=== PATIENT | female | born 2000 | race Caucasian/White ===

== ENCOUNTER 2021-10-28 19:26 | Inpatient (IN) | payer OTHER, SELFPAY ==
[2021-10-28] VITALS (52 sets, daily range): BP systolic 67–154; BP diastolic 47–108; PULSE 81–133; TEMP 37.7; O2SAT 95–100; BMI 34.1
--- OUTSIDE RECORDS SUMMARY | 2021-10-28 19:58 | XMS_ITS | Encounter Summary ---
:2000 Author Reason for Visit OB visit Assessment and Plan Assessment Note Patient is ___weeks . Discu ssed plan. 1. Routine care Discussion Note: None recorded.Patient educational handouts: No information available. Plan of Care Reminders Provider Appointments Ob Routine Irene Lal CNM 11/02/2021 1:15PM ? Induction Gavi The rese 11/02/2021 MD Jonny 12:01AM ? Ob Routine Esther Lal CNM 11/09/2021 1:30PM Lab None ? ? recorded. Referral None ? ? recorded. Procedures None ? ? recorded. Surgeries None ? ? recorded. Imaging None ? ? recorded. Medications Name Start Date ? ? ? Medications Administered None recorded. Vitals Height Weight BMI Blood Pressure 5 ft 1.5 in 181 lbs 33.6 kg/m2 130/85 mm[Hg] Results Lab Results None recorded. Allergies Code Code System Name Reaction Severity Onset NKDA ? ? ? Problems
--- OUTSIDE RECORDS SUMMARY | 2021-10-28 19:58 | XMS_ITS | Encounter Summary ---
:2000 Author Reason for Visit OB visit Assessment and Plan Assessment Note Patient is ___weeks . Discu ssed plan. 1. Uterine size for dates discre pancy Discussion Note: None recorded.Patient educational handouts: No [...] BMI Blood Pressure 5 ft 1.5 in 173 lbs 32.2 kg/m2 124/81 mm[Hg] Results Lab Results None recorded. Allergies Code Code System Name Reaction Severity Onset NKDA ? ? ?
--- OUTSIDE RECORDS SUMMARY | 2021-10-28 19:58 | XMS_ITS ---
:2000 Author Care Team Providers Name Role Phone Aquiles Patel Primary Care Provider Unavailable Allergies Code Code System Name Reaction Severity Status Onset NKDA ? Medications Name Status Start Date Stop Date ? ? Depo-Provera 150 mg/mL intramuscular suspension Completed 10/07/2015 03/30/2021 inject 1 milliliter by intramuscular route every 3 months Depo-Provera 150 mg/mL intramuscular syringe Completed 03/30/2021 inject 1 milliliter by intramuscular route every 3 months doxycycline hyclate 100 mg Completed ? 03/30 tablet ibuprofen 100 mg tablet Completed 03/30/2015 03/30/20 take 2 tablet by oral route every 4 - 6 hours as needed with f ood Junel FE 11/23 (28) 1 mg-20 mcg (21)/75 mg (7) tablet Completed 03/30/2015 03/30/2021 take 1 tablet by oral route every day metronidazole 0.75 % vaginal Completed ? gel metronidazole 500 mg tablet Completed ? 09/04 Nexplanon 68 mg subdermal implant Completed 01/29/2019 03/30/2021 Insert penicillin V potassium 500 mg Completed ? tablet Active ? Not available Problems Name Status Onset Date Source ? Well Child Unknown 03/30/2015 History Specialized Medical Examination Unknown 03/30/2015 History Education Unknown 07/04/2015 History Family Planning Surveillance Unknown 07/20/2015 His tory Test Negative Unknown 07/20/2015 History
--- OUTSIDE RECORDS SUMMARY | 2021-10-28 19:58 | XMS_ITS | Encounter Summary ---
:2000 Author Reason for Visit OB visit pt is here today for routine ob visit 35 .4 wks Assessment and Plan 1. Routine care Discussion Note: None recorded.Patient [...] BMI Blood Pressure 5 ft 1.5 in 179 lbs 33.3 kg/m2 128/80 mm[Hg] Results Lab Results None recorded. Allergies Code Code System Name Reaction Severity Onset NKDA ? ? ? Problems Name Status Onset Date Source ?
--- OUTSIDE RECORDS SUMMARY | 2021-10-28 19:58 | XMS_ITS | Encounter Summary ---
:2000 Author Reason for Visit OB visit OB and HASMUKH - trich Assessment and Plan Assessment Note Patient is [...] BMI Blood Pressure 5 ft 1.5 in 170 lbs 31.6 kg/m2 132/75 mm[Hg] Results Lab Results None recorded. Allergies Code Code System Name Reaction Severity Onset NKDA
--- OUTSIDE RECORDS SUMMARY | 2021-10-28 19:58 | XMS_ITS | Encounter Summary ---
:2000 Author Reason for Visit OB visit 38wks Assessment and Plan 1. Routine care Discussion [...] ft 1.5 in 181 lbs 33.6 kg/m2 135/85 mm[Hg] Results Lab Results None recorded. Allergies Code Code System Name Reaction Severity Onset NKDA ? ? ? Problems Name Status Onset Date Source ?
--- OUTSIDE RECORDS SUMMARY | 2021-10-28 19:58 | XMS_ITS | Encounter Summary ---
:2000 Author Reason for Visit None recorded. Assessment and Plan 1. Gravid uterus [id number] ? US, obstetric, follow-up Discussion Note: None recorded.Patient educational handouts: No information available. Plan of Care Reminders Provider Appointments Ob Routine Irene Lal CNM 11/02/2021 1:15PM ? Induction Gavi The rese 11/02/2021 MD Jonny 12:01AM ? Ob Routine Esther Lal CNM 11/09/2021 1:30PM Lab None ? ? recorded. Referral None ? ? recorded. Procedures None ? ? recorded. Surgeries None ? ? recorded. Imaging , [facility], Follow-up 09/07/2021 Medications Name Start Date ? ? ? Medications Administered None recorded. Vitals None recorded. Results Lab Results None recorded. Allergies Code Code System Name Reaction Severity Onset NKDA ? ? ? Problems Name Status Onset Date Source ?
--- OUTSIDE RECORDS SUMMARY | 2021-10-28 19:58 | XMS_ITS | Encounter Summary ---
:2000 Author Reason for Visit OB visit Assessment and Plan Assessment Note Patient is ___weeks . Discu ssed plan. 1. Infection by Trichomonas ? metronidazole 500 mg table t Discussion Note: None recorded.Patient educational handouts: No [...] BMI Blood Pressure 5 ft 1.5 in 177 lbs 32.9 kg/m2 133/83 mm[Hg] Results Lab Results None recorded. Allergies Code Code System Name Reaction Severity Onset
[2021-10-28] MEDS: AMPICILLIN 2 GM/NS 100 ML 2 GM/100 ML BAG IVPB (20:19)
[2021-10-28] MEDS: LACTATED RINGERS 1,000 ML 125 ML IV CONT ×2 (20:19→23:52)
[2021-10-28 20:26] LABS: Basophils Percent Auto 0.1 % (0.2-1.2); Eosinophils Percent Auto 0.1 % (0-4.4); Hematocrit 35.3 % (37.0-47.0); Hemoglobin 11.6 g/dL (12.0-15.0); Immature Granulocyte Absolute 0.16 K/mm3 (0.00-0.031); Immature Granulocyte Percent A 0.6 % (0-0.5); Lymphocytes Absolute Auto 2.07 K/mm3 (0.9-3.2); Lymphocytes Percent Auto 7.6 % (18.3-44.2); Mean Corpuscular HGB Conc 32.9 g/dl (32-36); Mean Corpuscular Volume 82.1 fl (80-100); Mean Platelet Volume 10.9 fl (7.4-10.4); Monocytes Absolute Auto 1.4 K/mm3 (0.1-0.6); Monocytes Percent Auto 5.2 % (2.6-8.5); Neutrophils Absolute Auto 23.5 K/mm3 (1.3-6.7); Neutrophils Percent Auto 86.4 % (45.5-73.1); Platelet Count Result 361 k/mm3 (150-375); Red Cell Distribution Width 13.8 % (11.5-14.5); White Blood Count 27.2 K/mm3 (4.5-10.0)
--- NOTE | 2021-10-28 21:05 | LDADM ---
This patient, Anika Moser, was admitted to Labor/Delivery/Recovery 106 on 10/28/21 at 19:26. Plans for labor, pain management and were discussed with patient. Patient/family oriented to hospital policies and general routines including ID bracelet, bed and alarms, visiting hours, pain management, procedures, bathroom and other care routines, personal items, smoking policy, room service/diet and guest tray routines, security routines, and visiting hours. Patient/Family are encouraged to report perceived risks to care and to ask questions if they do not understand what they are told or what they should do. See OBIX for further documentation.
[2021-10-28 21:10] LABS: Amphetamine Screen Urine Negative (Negative); Barbiturate Screen Urine Negative (Negative); Benzodiazepines Screen Urine Negative (Negative); Cannabinoid Screen Urine Positive (Negative); Cocaine Screen Urine Negative (Negative); Methadone Screen Urine Negative (Negative); Opiate Screen Urine Negative (Negative); Phencyclidine Screen Urine Negative (Negative)
[2021-10-28] MEDS: ACETAMINOPHEN 500 MG TABLET 1000 MG PO (21:38)
[2021-10-28] MEDS: fentaNYL CITRATE INJ (*CRX) 100 MCG/2 ML VIAL 50 MCG IV PUSH (21:57)
[2021-10-28 22:05] LABS: EDCOVIDSCREEN Negative (Negative)
[2021-10-29] VITALS (142 sets, daily range): BP systolic 66–161; BP diastolic 24–125; PULSE 79–243; RESP 16–20; TEMP 36.6–37.1; O2SAT 95–100
[2021-10-29] MEDS: AMPICILLIN 1 GM/NS 50 ML 1 GM/50 ML BAG IVPB ×2 (00:35→04:29)
[2021-10-29] MEDS: ONDANSETRON INJ 4 MG/2 ML VIAL IV PUSH ×2 (03:42→14:09)
[2021-10-29] MEDS: LACTATED RINGERS 1,000 ML 125 ML IV CONT (03:42)
[2021-10-29] MEDS: TERBUTALINE SULFATE 1 MG/ML VIAL 0.25 MG SUB-Q (04:31)
--- NOTE | 2021-10-29 05:42 | PM.IMHP ---
H&P: HPI History of Present Illness Date/Time: 10/29/21 05:42 Chief Complaint: SROM Narrative: Anika is a 21yo G1 at 38+ weeks who presented last night with SROM, GBS pos. Has been receiving Ampicillin, no pitocin, labored on her own. Baseline started 155/160 on admission and has been creeping up, now 175. Afebrile, COVID neg, no URI sx. Had periods of late decelerations, none currently, but minimal variability, so decision has been made to proceed with CS. has been uncomplicated to this point. Review of Systems Review of Systems: All systems reviewed & are unremarkable except as noted in HPI and below [facility] Family History Family History (Updated 10/25/21 @ 12:45 by Van Rodriguez RN) Father Emphysema lung Mother Chronic obstructive pulmonary disease Social History Social History Smoking status: Never smoker Second hand tobacco smoke exposure: No Substance use: current Last use: 10/24/21 Spiritual care concerns: No Meds Home Medications and Allergies Allergies Allergy/AdvReac Type Severity Reaction Status Date / Time No Known Allergies Allergy Verified 10/28/21 21:11 Vital Signs Vital Signs - 24 hr 10/28/21 19:41 10/28/21 19:46 10/28/21 19:48 Temperature Pulse Rate 116 H 112 H 118 H Blood Pressure 133/82 67/51 L 145/83 H Pulse Oximetry 10/28/21 20:00 10/28/21 20:46 10/28/21 21:00 Temperature Pulse Rate 112 H 108 H 104 H Blood Pressure 147/89 H 90/55 L 113/69 Pulse Oximetry 10/28/21 21:15 10/28/21 21:30 10/28/21 21:38 Temperature 99.9 F H Pulse Rate 108 H 98 Blood Pressure 118/63 129/78 Pulse Oximetry 10/28/21 21:46 10/28/21 22:02 10/28/21 22:13 Temperature Pulse Rate 119 H 130 H Blood Pressure 110/62 119/52 L Pulse Oximetry 98 10/28/21 22:17 10/28/21 22:18 10/28/21 22:23 Temperature Pulse Rate 81 Blood Pressure 135/69 Pulse Oximetry 96 100 10/28/21 22:28 10/28/21 22:32 10/28/21 22:33 Temperature Pulse Rate 114 H Blood Pressure 142/108 H Pulse Oximetry 95 100 10/28/21 22:35 10/28/21 22:36 10/28/21 22:37 Temperature Pulse Rate 117 H 118 H Blood Pressure 146/79 H 144/78 H Pulse Oximetry 100 10/28/21 22:38 10/28/21 22:41 10/28/21 22:42 Temperature Pulse Rate 120 H 110 H Blood Pressure 154/71 H 139/58 L Pulse Oximetry 100 10/28/21 22:43 10/28/21 22:45 10/28/21 22:46 Temperature Pulse Rate 105 H 105 H Blood Pressure 145/74 H 137/70 Pulse Oximetry 100 10/28/21 22:48 10/28/21 22:50 10/28/21 22:53 Temperature Pulse Rate 109 H 95 86 Blood Pressure 133/59 L 143/69 H 129/77 Pulse Oximetry 100 10/28/21 22:55 10/28/21 22:56 10/28/21 22:58 Temperature Pulse Rate 112 H 93 Blood Pressure 127/66 134/67 Pulse Oximetry 100 10/28/21 23:00 10/28/21 23:03 10/28/21 23:05 Temperature Pulse Rate 99 96 92 Blood Pressure 121/66 124/63 119/65 Pulse Oximetry 100 100 10/28/21 23:08 10/28/21 23:10 10/28/21 23:14 Temperature Pulse Rate 91 103 H 93 Blood Pressure 126/65 118/67 114/49 L Pulse Oximetry 100 10/28/21 23:15 10/28/21 23:18 10/28/21 23:20 Temperature Pulse Rate 99 102 H 109 H Blood Pressure 109/55 L 104/53 L 124/58 L Pulse Oximetry 100 99 10/28/21 23:23 10/28/21 23:25 10/28/21 23:28 Temperature Pulse Rate 110 H 102 H 108 H Blood Pressure 104/54 L 113/53 L 94/47 L Pulse Oximetry 100 10/28/21 23:30 10/28/21 23:35 10/28/21 23:40 Temperature Pulse Rate 106 H Blood Pressure 103/49 L Pulse Oximetry 99 100 99 10/28/21 23:45 10/28/21 23:46 10/28/21 23:50 Temperature Pulse Rate 121 H Blood Pressure 107/60 Pulse Oximetry 100 100 10/28/21 23:55 10/29/21 00:00 10/29/21 00:05 Temperature Pulse Rate 97 Blood Pressure 109/66 Pulse Oximetry 100 100 99 10/29/21 00:10 10/29/21 00:15 10/29/21 00:20 Temperature Pulse Rate 102 H Blood Pressure 108/50 L Pulse Oximet
--- NOTE | 2021-10-29 05:46 | WPDHPUPDATE1 ---
History and Physical Update Update Date/Time: 10/29/21 05:46 History and Physical has been reviewed, including an updated exam of the patient. There are NO changes in the patient's condition. Risks, benefits, and alternatives have been discussed and questions answered. Patient agrees to proceed with procedure.
--- NOTE | 2021-10-29 06:30 | P.PCNOB_ITS ---
OB - Delivery Note Procedure Delivery date: 10/29/21 Procedure: Procedures Operation Date: 10/29/21 05:30 <No data on this case meets the specified criteria> Primary Low Transverse Section events: Premature Rupture of Membrane Intrapartal events: Intolerance Delivery monitor: external FHT and external uterine Route of delivery: Specimen: Yes (placenta) Quantitative Blood Loss (ml): 950 Anesthesia type: Epidural Disposition: floor Complications: none Narrative: The patient was taken to the OR and had her epidural anesthesia dosed adequately. She was placed in dorsal supine position with left lateral tilt. SCDs and brandt had been placed. She was prepped and draped in the normal sterile fashion. A Pfannensteil skin incision was made and carried through to the underlying layer of fascia. The fascia was incised in the midline and then extended laterally using Pollard scissors. The muscles were in the midline and the peritoneum was entered bluntly. The peritoneal incision was extended inferiorly and superiorly with care to avoid the bladder. The bladder blade was then inserted, the vesicouterine peritoneum was grasped, incised with Metzenbaum scissors, and a bladder flap created. The bladder blade was reinserted. A low transverse uterine incision was made with a scalpel and extended bluntly. The head was delivered, followed by the remainder of the baby. The baby's oropharynx was suctioned. After 30 seconds, the cord was clamped and cut and the was handed off. Cord blood was obtained and the placenta was then removed manually. The uterus was exteriorized. A moist lap sponge was used to curette the endometrium. The uterine incision was then closed with one layer of 0-Vicryl in a running, locking fashion. One additional figure of eight suture was required. Good hemostasis was noted. The posterior cul de sac was irrigated with normal saline and cleared of all clot and debris. The uterus was returned to the abdomen. Both lateral gutters were then irrigated. The rectus muscles were inspected and found to be hemostatic. The fascia was reapproximated using 0- Vicryl in running fashion. The subcutaneous tissue was irrigated with normal saline and made hemostatic with Bovie electrocautery. The skin was then closed with absorbable beka. Steri strips and a bandage were applied. The uterus was evacuated. The patient tolerated the procedure very well. All counts were correct. She was taken to the recovery room in good condition. Baby Date of : 10/29/21 Time of : 06:01 Weeks of gestation at delivery: 38 Infant gender: Female Weight (pounds): 6 Weight (ounces): 9 presentation: vertex Placenta delivery description: Manual Removal cord vessel description: 3 Vessels score one minute: 9 score five minutes: 9
--- NOTE | 2021-10-29 08:38 | OBPPTRN ---
Patient transferred to post room #288 via stretcher. Support person present. Oriented to unit, room, information board, rooming in, admission packet and security measures. Patient verbalizes understanding.
[2021-10-29] MEDS: OXYTOCIN 30 UNITS/NS 500 ML 30 UNITS/500 ML BAG 125 UNITS IV CONT (08:48)
[2021-10-29] MEDS: KETOROLAC 30 MG/ML VIAL (*BKC) IV PUSH (12:00)
[2021-10-29] MEDS: DEXTROSE 5%/0.45% SOD CHL 1,000 ML 125 ML IV CONT (13:07)
--- NOTE | 2021-10-29 14:45 | PC.NURSE ---
Pt states she is feeling better since I gave her the Zofran, she is no longer hot and sweaty .
[2021-10-29] MEDS: HYDROcodone/acetaminophen (*CRX) 10-325 MG TABLET 1 TAB PO (18:29)
[2021-10-29] MEDS: SIMETHICONE 80 MG TAB.CHEW PO (18:29)
[2021-10-29] MEDS: DOCUSATE SODIUM 100 MG CAPSULE PO (18:29)
[2021-10-29] MEDS: IBUPROFEN 600 MG TABLET PO (18:29)
[2021-10-29] MEDS: ZOLPIDEM TARTRATE (*CRX) 5 MG TABLET PO (19:58)
[2021-10-30] VITALS: BP 111/72; PULSE 86; RESP 18; TEMP 37
[2021-10-30] MEDS: SIMETHICONE 80 MG TAB.CHEW PO ×4 (00:17→21:55)
[2021-10-30] MEDS: IBUPROFEN 600 MG TABLET PO ×4 (00:17→21:55)
[2021-10-30] MEDS: HYDROcodone/acetaminophen (*CRX) 10-325 MG TABLET 1 TAB PO ×5 (00:17→21:55)
[2021-10-30] MEDS: TETANUS,DIPHTHERIA,AC PERTUSSIS ADULT (0.5 ML) BOOSTRIX IM (00:18)
[2021-10-30 04:35] VITALS: BP 100/58; PULSE 91; RESP 18; TEMP 36.8
[2021-10-30 04:49] LABS: Basophils Absolute Auto 0.1 K/mm3 (0.0-0.1); Basophils Percent Auto 0.5 % (0.2-1.2); Eosinophils Absolute Auto 0.1 K/mm3 (0-0.3); Eosinophils Percent Auto 0.6 % (0-4.4); Hematocrit 25.1 % (37.0-47.0); Hemoglobin 8.1 g/dL (12.0-15.0); Immature Granulocyte Absolute 0.15 K/mm3 (0.00-0.031); Immature Granulocyte Percent A 0.7 % (0-0.5); Mean Corpuscular HGB Conc 32.3 g/dl (32-36); Mean Corpuscular Hemoglobin 27.3 pg (26-34); Mean Corpuscular Volume 84.5 fl (80-100); Mean Platelet Volume 11.2 fl (7.4-10.4); Monocytes Percent Auto 4.6 % (2.6-8.5); Neutrophils Absolute Auto 16.8 K/mm3 (1.3-6.7); Neutrophils Percent Auto 78.6 % (45.5-73.1); Platelet Count Result 300 k/mm3 (150-375); Red Blood Count 2.97 M/mm3 (4.2-5.4); Red Cell Distribution Width 14.4 % (11.5-14.5); White Blood Count 21.3 K/mm3 (4.5-10.0)
[2021-10-30 08:00] VITALS: BP 107/71; PULSE 90; RESP 16; TEMP 36.4; O2SAT 99
--- NOTE | 2021-10-30 08:46 | P.PNOB_ITS ---
OB - PN: Subj Subjective Date/time seen: 10/30/21 08:46 Patient comments: no complaints and pain well controlled baby status: doing well Narrative: POD 1 from primary CS. Doing well. Normal lochia. Eating, ambulating, brandt out. OB - PN: Obj Data Labs CBC & Chem 7: 10/30/21 04:11 Labs: Laboratory Results - last 24 hr 10/30/21 04:11 WBC 21.3 H RBC 2.97 L Hgb 8.1 L D Hct 25.1 L MCV 84.5 MCH 27.3 MCHC 32.3 RDW 14.4 Plt Count 300 MPV 11.2 H Immature Gran % (Auto) 0.7 H Neut % (Auto) 78.6 H Lymph % (Auto) 15.0 L [place] % (Auto) 4.6 Eos % (Auto) 0.6 Baso % (Auto) 0.5 Lymph # (Auto) 3.20 [place] # (Auto) 1.0 H Eos # (Auto) 0.1 Baso # (Auto) 0.1 Abs Immat Gran (auto) 0.15 H Absolute Neuts (auto) 16.8 H Absolute Nucleated RBC 0.0 Nucleated RBC % 0.0 OB - PN A/P Assessment and Plan (1) delivery delivered: Code(s): O82 - Encounter for delivery without indication Status: Acute Plan day: 1 Plan: routine care Time Spent With Patient Time: Total time spent is greater than 50% in coordination of care (as documented) at patient's floor/unit and/or counseling patient: Exam Narrative: NAD abdomen soft, appropriately tender, incision bandaged Extremities nontender with 1+ edema
[2021-10-30] MEDS: DOCUSATE SODIUM 100 MG CAPSULE PO ×2 (08:53→17:28)
[2021-10-30] MEDS: HYDROcodone/acetaminophen (*CRX) 5-325 MG TABLET 1 TAB PO (08:54)
[2021-10-30] MEDS: POLYSACCHARIDE IRON COMPLEX 150 MG CAPSULE PO ×2 (08:54→17:28)
[2021-10-30 11:21] LABS: Rapid Plasma Reagin Non-Reactive (NonReactive)
--- NOTE | 2021-10-30 14:19 | PCCCNOTE ---
Care Coordination met with pt. and sig other this morning to discuss discharge planning. Pt.'s current D/C plan is to return home with baby. Pt. lives alone and sig other is in process of moving in to assist with baby. Pt. states she has everything need to safely bring baby home. Pt. is current with [facility] and will continue to bottle feed baby at time of D/C. Pt. tested positive for THC, she states drug use prior to hospitalization and states she will continue now that baby has been delivered. CC completed online report for [place] D[facility], ID number [id number]. Will follow.
[2021-10-30 18:40] VITALS: BP 123/79; PULSE 87; RESP 18; TEMP 36.6
[2021-10-30] MEDS: ZOLPIDEM TARTRATE (*CRX) 5 MG TABLET PO (21:55)
[2021-10-31] MEDS: IBUPROFEN 600 MG TABLET PO ×3 (04:55→23:30)
[2021-10-31] MEDS: SIMETHICONE 80 MG TAB.CHEW PO (04:55)
[2021-10-31] MEDS: HYDROcodone/acetaminophen (*CRX) 10-325 MG TABLET 1 TAB PO ×3 (04:55→14:45)
[2021-10-31 06:30] VITALS: BP 115/79; PULSE 84; RESP 16; TEMP 36.6; O2SAT 100
--- NOTE | 2021-10-31 07:20 | PM.OBPNVD ---
OB - PN: Subj Subjective Date/time seen: 10/31/21 07:20 Patient comments: no complaints and pain well controlled baby status: bottle feeding well [place] feeding status: exclusively bottle feeding Narrative: desires DC home today. +flatus. OB - PN: Obj Data Labs CBC & Chem 7: 10/30/21 04:11 Labs: Laboratory Results - last 24 hr 10/28/21 20:15 RPR Non-reactive OB - PN A/P Assessment and Plan (1) delivery delivered: Code(s): O82 - Encounter for delivery without indication Status: Acute (2) Anemia, blood loss: Code(s): D50.0 - Iron deficiency anemia secondary to blood loss (chronic) Status: Acute Plan day: 2 Plan: routine care and discharge home Comments: DC instructions given continue iron at home. Time Spent With Patient Time: Total time spent is greater than 50% in coordination of care (as documented) at patient's floor/unit and/or counseling patient: Exam Narrative: NAD abdomen soft, appropriately tender, incision CDI Extremities nontender with 1+ edema
--- NOTE | 2021-10-31 07:25 | PM.OBDSVD ---
DS: Admitting Diagnosis Discharge Date 10/01/21 Admitting Diagnosis term IUP, SROM DS: Discharge Diagnosis Discharge Diagnosis (1) Anemia, blood loss: Code(s): D50.0 - Iron deficiency anemia secondary to blood loss (chronic) Status: Acute (2) delivery delivered: Code(s): O82 - Encounter for delivery without indication Status: Acute OB - DS: Summary Hospital Course Hospital Course: Anika was admitted with SROM and labored. However, she required a CS for intolerance of labor. her course was uncomplicated and she was discharged home on POD2. OB Procedures : Ultrasound OB Procedures Intrapartum: OB Procedures: : None Peripartum Data Delivery Method: Section Procedures: Procedures Operation Date: 10/29/21 05:30 Actual Procedure Side Surgeon p Section Gavi Fuller MD complications: none Status at Discharge Functional status at discharge: independent ambulation Time Spent with Patient Time attestation: Total time spent providing and/or coordinating discharge services: Exam Narrative: NAD abdomen soft, appropriately tender, incision CDI DS: Data Data Completed and Pending Pending studies at discharge: Pending at discharge 10/29/21 06:27 Surgical [PTH] Routine Labs on day of discharge: Labs from last 24 hours 10/28/21 20:15 RPR Non-reactive Discharge Plan Discharge Attending physician on discharge: Gavi Fuller Discharging Clinician: Gavi Fuller Anticipated Discharge Date/Time: 10/31/21 16:00 Patient Disposition: Home, Self-Care Activity: may shower, no straining, may drive after 2 weeks and pelvic rest Diet: as tolerated Patient Instructions: Antibiotic Form Stand Alone Forms: General Discharge Information Follow-up/Referrals: Gavi Fuller MD [Physician] - 1 Week Discharge Medications: New hydrocodone-acetaminophen 5-325 mg Tablet 1 tablet PO Q4-5H PRN (Reason: Moderate Pain (4-6)) Qty: 40 RF: 0 docusate sodium 100 mg Capsule 100 mg PO BID PRN (Reason: Constipation) Qty: 60 RF: 0 ibuprofen 600 mg Tablet 600 mg PO Q6H PRN (Reason: Cramping) Qty: 60 RF: 0 polysaccharide iron complex 150 mg iron Capsule 150 mg PO DAILY Qty: 30 RF: 1 Date of admission: 10/28/21 19:26 Primary Care Provider: PHYSICIAN,STORE SALES MANAGER Admitting Provider: Gavi Fuller Attending physician on admission: Gavi Fuller Condition: Stable
--- NOTE | 2021-10-31 10:04 | WPDANLDNPN2 ---
Anes-Prog Note L&D-Neuraxial Date/Time: 10/30/21 10:04 Neuraxial medications: epidural PF morphine Opiod-related complaints: none Patient feedback: Patient satisfied with post-operative pain management.
--- NOTE | 2021-10-31 10:05 | WPDANLDPN2 ---
Anes-Prog Note L&D Date/Time: 10/31/21 10:05 Comfortable throughout: labor and section Neuraxial method: epidural Epidural/Spinal procedure site: clean & non-tender Neuro status: Neuro function grossly intact. Cardiovascular status: normal Respiratory status: normal Airway patency: baseline Mental status: baseline Post-Op hydration status: normal Vital Signs: Last Vital Signs Temp 97.9 F 10/31/21 06:30 Pulse 84 10/31/21 06:30 Resp 16 10/31/21 06:30 BP 115/79 10/31/21 06:30 Pulse Ox 100 10/31/21 06:30 Pain score (VAS): 0/10 Post-procedural complaints: none Patient feedback: Patient satisfied with anesthetic care.
[2021-10-31] MEDS: DOCUSATE SODIUM 100 MG CAPSULE PO ×2 (10:15→17:31)
[2021-10-31] MEDS: POLYSACCHARIDE IRON COMPLEX 150 MG CAPSULE PO ×2 (10:15→17:31)
--- NOTE | 2021-10-31 12:30 | PC.NURSE ---
mother changed her mind and would like to stay another day instead of getting discharged to home. Dr. Fuller and Dr. Mcallister notified, discharge order cancelled.
[2021-10-31 20:00] VITALS: BP 116/79; PULSE 105; RESP 18; TEMP 36.3; O2SAT 100
[2021-10-31] MEDS: HYDROcodone/acetaminophen (*CRX) 5-325 MG TABLET 1 TAB PO (23:30)
--- NOTE | 2021-11-01 07:32 | PM.OBPNVD ---
OB - PN: Subj Subjective Date/time seen: 11/01/21 07:32 Patient comments: incisional pain and flatus present [place] baby status: doing well OB - PN: Obj Data Labs CBC & Chem 7: 10/30/21 04:11 OB - PN A/P Assessment and Plan (1) delivery delivered: Code(s): O82 - Encounter for delivery without indication Status: Acute (2) Anemia, blood loss: Code(s): D50.0 - Iron deficiency anemia secondary to blood loss (chronic) Status: Acute Plan Plan: routine care and discharge home Time Spent With Patient Time: Total time spent is greater than 50% in coordination of care (as documented) at patient's floor/unit and/or counseling patient: Exam Narrative: NAD abdomen soft, appropriately tender, incision CDI Extremities nontender with 1+ edema
[2021-11-01 08:20] VITALS: BP 116/75; PULSE 139; RESP 16; TEMP 38.6; O2SAT 99
[2021-11-01 08:30] VITALS: PULSE 139; RESP 16; O2SAT 99
[2021-11-01] MEDS: POLYSACCHARIDE IRON COMPLEX 150 MG CAPSULE PO (08:31)
[2021-11-01] MEDS: DOCUSATE SODIUM 100 MG CAPSULE PO (08:31)
[2021-11-01] MEDS: SIMETHICONE 80 MG TAB.CHEW PO (08:31)
[2021-11-01] MEDS: HYDROcodone/acetaminophen (*CRX) 5-325 MG TABLET 1 TAB PO (08:32)
[2021-11-01] MEDS: IBUPROFEN 600 MG TABLET PO (08:32)
--- NOTE | 2021-11-01 10:48 | PC.NURSE ---
Patient viewed the discharge video Mother & Baby Care, The First Two Weeks . Patient was given the opportunity and encouraged to ask questions. Patient verbalized understanding of information shared and has been given the mother/baby guide for home reference.
[2021-11-02 08:30] VITALS: BP 124/75; PULSE 108; RESP 20; TEMP 36.7; O2SAT 100
== END 2021-11-01 11:35 | disposition home or self-care (01) | DRG 540 ==
LOC: ANHLDR 10-29 06:33 → ANHOB2 10-29 09:26
PROVIDERS: Admitting Provider Obstetrics & Gynecology; Visit Provider Obstetrics & Gynecology
PROC: 10D00Z1 Extraction of Products of Conception, Low, Open Approach (ICD-10-PCS; CPT 59514; principal; 2021-10-29 05:30)
DX: O99.824 Streptococcus B carrier state complicating childbirth (principal); O76 Abnormality in fetal heart rate and rhythm complicating labor and delivery; O41.1230 Chorioamnionitis, third trimester, not applicable or unspecified; O99.02 Anemia complicating childbirth; D50.0 Iron deficiency anemia secondary to blood loss (chronic); Z3A.38 38 weeks gestation of pregnancy; Z37.0 Single live birth; Z23 Encounter for immunization; Z20.822 Contact with and (suspected) exposure to COVID-19
CPT/HCPCS: 36415; 80307; 84112; 85025; 86592; 86850; 86900; 86901; 87426; 88307; 90715; A9270; C9803; J0290; J1885; J2175; J2274; J2405; J2590; J2795; J3010; J3105; J7120

== ENCOUNTER 2024-06-25 09:47 | Observation (INO) | payer OTHER, SELFPAY ==
[2024-06-25] VITALS (37 sets, daily range): BP systolic 116–146; BP diastolic 54–114; PULSE 60–89; TEMP 36.6–37.1; O2SAT 98–100; BMI 37.9
--- NOTE | ~2024-06-25 | US_ITS ---
EXAMINATION: US abdomen limited DATE: 06/25/2024 13:39 INDICATION: Right abdominal pain. TECHNIQUE: Multiple grayscale and Doppler ultrasound images of the abdomen were obtained. COMPARISON: None FINDINGS: The gallbladder is normal. The appendix is not identified. IMPRESSION: 1. Appendix not identified. 2. Normal gallbladder. Reviewed, dictated and finalized at location A.
--- NOTE | ~2024-06-25 | US_ITS ---
EXAMINATION: US renal BI DATE: 06/25/2024 13:40 INDICATION: Right abdominal and back pain. TECHNIQUE: Multiple ultrasound grayscale images of the kidneys were obtained. COMPARISON: None. FINDINGS: The right kidney measures 10.7 x 6.2 x 5.8 cm. The left kidney measures 11.0 x 5.7 x 5.5 cm. The kidn eys demonstrate normal parenchymal echogenicity. There is no hydronephrosis. IMPRESSION: 1. Normal kidneys. No hydronephrosis. Reviewed, dictated and finalized at location A.
--- NOTE | ~2024-06-25 | MR_ITS ---
EXAMINATION: MR abdomen wo con DATE: 06/26/2024 10:07 INDICATION: Right abdominal pain. Third trimester of . TECHNIQUE: Magnetic resonance imaging (MRI) of the abdomen was performed without intravenous contrast . COMPARISON: Abdomen ultrasound 06/25/2024 FINDINGS: There is a single intrauterine gestation in vertex presentation. The placenta is posterior. The amnio tic fluid volume is normal. The maternal liver, gallbladder, spleen, pancreas, and adrenal glands are normal. There is mild bilateral hydronephrosis and hydroureter. There are no dilated loops of bowel. There is no ascites. IMPRESSION: 1. Appendix not visualized. 2. Mild bilateral hydronephrosis and hydroureter secondary to the gravid uterus. Reviewed, dictated and finalized at location A. IMPRESSION: 1. Appendix not visualized. 2. Mild bilateral hydronephrosis and hydroureter secondary to the gravid uterus .
--- NOTE | ~2024-06-25 | US_ITS ---
EXAMINATION: US OB limited DATE: 06/25/2024 13:39 INDICATION: Right abdominal pain. Right back pain. TECHNIQUE: Real-time ultrasound of the pelvis was performed. COMPARISON: None. FINDINGS: There is a single fetus in vertex presentation. The placenta is posterior. heart rate is 141 b eats per minute (bpm). The amniotic fluid volume is subjectively normal. The deepest vertical pocket is 3.3 cm. IMPRESSION: 1. Single living fetus in vertex presentation. Reviewed, dictated and finalized at location A.
--- NOTE | 2024-06-25 09:47 | OBADM ---
This patient, Anika Moser, admitted to the OB room Labor/Delivery/Recovery 109 for observation. Patient/family oriented to hospital policies and general routines including ID bracelet, bed and alarms, visiting hours, pain management, procedures, bathroom and other care routines, personal items, smoking policy, room service/diet, and visiting hours. Patient/Family are encouraged to report perceived risks to care and to ask questions if they do not understand what they are told or what they should do.
[2024-06-25 10:37] LABS: Add Urine Microscopic? NO; Appearance Urine Clear (Clear); Bilirubin Urine Negative (Negative); Blood Urine Negative (Negative); Color Urine Yellow (Yellow); Glucose Urine UA Negative (Negative); Ketones Urine Negative (Negative); Leukocyte Esterase Ur Negative LEU/UL (Negative); Nitrate Urine Negative (Negative); Protein Urine Negative (Negative); Specific Grav Ur 1.011 (1.001-1.035); Urobilinogen Urine 0.2 mg/dL (<2.0)
--- NOTE | 2024-06-25 11:40 | PC.NURSE ---
Called Nalini Kerr CNM with pt status. Pt presented with right sided back pain that wrapped around to right side of abdomen. Pt was sweating and moaning in pain. SVE 1/thick/high. UA results given. Orders received.
[2024-06-25] MEDS: CYCLOBENZAPRINE HCL 10 MG TABLET (11:51)
[2024-06-25 14:37] LABS: Hematocrit 37.7 % (37.0-47.0); Hemoglobin 11.9 g/dL (12.0-15.0); Mean Corpuscular HGB Conc 31.6 g/dl (32-36); Mean Corpuscular Hemoglobin 27.4 pg (26-34); Mean Corpuscular Volume 86.7 fl (80-100); Mean Platelet Volume 10.6 fl (7.4-10.4); Platelet Count Result 407 k/mm3 (150-375); Red Blood Count 4.35 M/mm3 (4.2-5.4); Red Cell Distribution Width 14.1 % (11.5-14.5); White Blood Count 28.8 K/mm3 (4.5-10.0)
[2024-06-25 14:49] LABS: Alanine Aminotransferase 18 U/L (6-35); Albumin Level 4.2 g/dL (3.5-5.1); Alkaline Phosphatase 285 U/L (38-126); Anion Gap 12 mmol/L (4-12); Aspartate Amino Transferase 24 U/L (14-36); Bilirubin,Total 0.6 mg/dL (0.2-1.3); Blood Urea Nitrogen 5 mg/dL (7-17); Calcium 8.8 mg/dL (8.4-10.2); Carbon Dioxide 21 mmol/L (22-30); Chloride 101 mmol/L (98-107); Estimated CRCL calculation 149 ml/min; Estimated Glomerular Filt Rate > 60; Glucose 107 mg/dL (65-110); Potassium 4.5 mmol/L (3.4-5.0); Sodium 134 mmol/L (137-145)
[2024-06-25 14:51] LABS: Band Neutrophils Percent 2 % (0-6); Lymphocytes Absolute Manual 1.72 K/mm3 (1.1-4.5); Lymphocytes Percent Manual 6 % (18-44); Neutrophils Absolute Manual 27.07 K/mm3 (1.7-7.2); Neutrophils Percent Manual 92 % (46-73); Platelet Estimate Increased (Adequate); Schistocytes None Seen
[2024-06-25] MEDS: HYDROcodone/acetaminophen (*CRX) 5-325 MG TABLET 1 TAB PO ×2 (16:42→20:51)
[2024-06-25] MEDS: LACTATED RINGERS 1,000 ML 125 ML IV CONT (16:42)
--- NOTE | 2024-06-25 17:48 | PC.NURSE ---
1735- Dr. Garcia in unit. Orders received for abx, pain medication and MD will reevaluate in AM 1746- OBGYN called and updated on POC and consult from Dr. Garcia. OBGYN agrees with plan of care. Orders received for NST qshift.
--- NOTE | 2024-06-25 18:45 | PM.CNGS ---
Assessment and Plan Assessment and plan (1) Lower thoracic back pain: Code(s): M54.6 - Pain in thoracic spine Status: Acute Assessment and Plan: Although white blood cell count is elevated, I do not see other evidence to suggest appendicitis. I will go ahead and start her on IV Zosyn antibiotics and start IV fentanyl 25 mcg q.2 hours p.r.n. for pain. She came in for contractions but is no longer having them. Recheck labs and exam again in the morning. If still uncomfortable with leukocytosis, will discuss either CT scan or MRI with SRINIVAS Wilcox. (2) Left-sided abdominal pain of unknown etiology: Code(s): R10.9 - Unspecified abdominal pain Status: Acute Assessment and Plan: As above (3) Third trimester : Code(s): Z34.93 - Encounter for supervision of normal , unspecified, third trimester Status: Acute Assessment and Plan: 37 weeks reported History of Present Illness Consult details Consult date: 06/25/24 Reason for consult: abdominal pain Requesting physician: Alber Lindsay MD Narrative: Patient is a 23-year-old woman who is 37 weeks gestation of her 2nd . Early this morning she began having right CVA pain. This apparently went on to develop abdominal pain and at some point was right-sided abdominal pain. She had a CBC and was noted to have a very high white blood cell count of 28,800. She was very uncomfortable but has been receiving some fluids and hydrocodone and nursing reports she is much more comfortable now than earlier today. I was asked to see her in consultation regarding the possibility of appendicitis. She did have an ultrasound of the abdomen in which the appendix was not seen. She has not had any fevers or vomiting. The only other CBC in the chart are the 2 results from the 2 days prior to her 1st delivery. these were both quite elevated, in the 20 thousands. She has a predominance of neutrophils on her differential and no increase in bands. She had a section with her 1st . At the present time she still is noticing pain in the right lower thoracic back. She is not really having any pain on the right side of the abdomen. She also is noticing pain in the left mid abdomen. She does admit that she feels better than earlier today. She had a urinalysis which was completely normal. She is seen now in consultation. Review of Systems Review of Systems: All systems reviewed & are unremarkable except as noted in HPI and below (HPI) PMFSH Family History Family History Father Emphysema lung Mother Chronic obstructive pulmonary disease Social History Social History Smoking status: Never smoker Second hand tobacco smoke exposure: No Substance use: current Last use: 06/25 Spiritual care concerns: No Meds Home Medications and Allergies Allergies Allergy/AdvReac Type Severity Reaction Status Date / Time No Known Allergies Allergy Verified 10/28/21 21:11 Vital Signs Vital Signs - 24 hr 06/25/24 10:16 06/25/24 10:31 06/25/24 10:46 Temperature Pulse Rate 71 65 72 Blood Pressure 134/84 128/80 127/76 Oxygen Delivery 06/25/24 11:01 06/25/24 11:15 06/25/24 11:20 Temperature Pulse Rate 80 72 68 Blood Pressure 126/78 135/101 H 131/63 Oxygen Delivery 06/25/24 11:31 06/25/24 11:46 06/25/24 12:01 Temperature Pulse Rate 60 61 72 Blood Pressure 142/72 H 137/114 H 130/69 Oxygen Delivery 06/25/24 12:16 06/25/24 12:31 06/25/24 14:21 Temperature Pulse Rate 67 64 65 Blood Pressure 116/86 139/66 137/59 L Oxygen Delivery 06/25/24 15:01 06/25/24 15:26 06/25/24 16:01 Temperature 36.6 C Pulse Rate 70 80 Blood Pressure 146/68 H 137/54 L Oxygen Delivery 06/25/24 17:01 06/25/24 18:01 06/25/24 11:25 Temperature Pulse Rate 85 89 Blood Pr
[2024-06-25] MEDS: fentaNYL CITRATE INJ (*CRX) 100 MCG/2 ML VIAL 25 MCG IV PUSH ×2 (19:31→22:10)
[2024-06-25] MEDS: PIPERACILLN/TAZ 3.375GM/NS50ML 3.375 GM/50 ML BAG IVPB (19:34)
--- NOTE | 2024-06-25 20:19 | PC.NURSE ---
Called Dr. Patel, orders clarified NST every shift, regular diet per Dr. Garcia's order, and vital signs every hour or two if sleeping.
--- NOTE | 2024-06-25 21:02 | PC.NURSE ---
Addendum entered by Gavi Ahmadi RN 06/25/24 21:03: Time should have been 1530. Forgot to change time when charting. Original Note: Called Nalini Kerr CNM with CBC results and update. Pt states that she got no relief from the Flexeril. Orders received.
[2024-06-25 23:21] LABS: Hemoglobin 11.2 g/dL (12.0-15.0); Mean Corpuscular HGB Conc 32.9 g/dl (32-36); Mean Corpuscular Hemoglobin 27.9 pg (26-34); Mean Corpuscular Volume 84.6 fl (80-100); Mean Platelet Volume 10.8 fl (7.4-10.4); Platelet Count Result 389 k/mm3 (150-375); Red Blood Count 4.02 M/mm3 (4.2-5.4); White Blood Count 24.9 K/mm3 (4.5-10.0)
[2024-06-25 23:58] LABS: Band Neutrophils Percent 2 % (0-6); Lymphocytes Absolute Manual 3.73 K/mm3 (1.1-4.5); Monocytes Absolute Manual 0.74 K/mm3 (0.1-0.90); Monocytes Percent Manual 3 % (3-9); Neutrophils Absolute Manual 20.41 K/mm3 (1.7-7.2); Neutrophils Percent Manual 80 % (46-73); Platelet Estimate Increased (Adequate); Schistocytes None Seen; Total Cells Counted 100
[2024-06-26] VITALS (14 sets, daily range): BP systolic 124–144; BP diastolic 63–77; PULSE 69–108; RESP 16; TEMP 36.4–36.7; O2SAT 97–99
[2024-06-26] MEDS: fentaNYL CITRATE INJ (*CRX) 100 MCG/2 ML VIAL 25 MCG IV PUSH ×3 (00:14→07:05)
[2024-06-26] MEDS: HYDROcodone/acetaminophen (*CRX) 5-325 MG TABLET 1 TAB PO (00:59)
[2024-06-26] MEDS: PIPERACILLN/TAZ 3.375GM/NS50ML 3.375 GM/50 ML BAG IVPB ×2 (01:00→07:00)
[2024-06-26] MEDS: LACTATED RINGERS 1,000 ML 125 ML IV CONT (01:15)
--- NOTE | 2024-06-26 08:38 | PC.NURSE ---
0830- Dr. Garcia at patient bedside. Orders received to draw CBC and MRI. Patient able to eat.
[2024-06-26 09:20] LABS: Basophils Absolute Auto 0.1 K/mm3 (0.0-0.1); Basophils Percent Auto 0.3 % (0.2-1.2); Hematocrit 33.1 % (37.0-47.0); Hemoglobin 10.8 g/dL (12.0-15.0); Immature Granulocyte Absolute 0.43 K/mm3 (0.00-0.031); Lymphocytes Absolute Auto 2.76 K/mm3 (0.9-3.2); Lymphocytes Percent Auto 12.9 % (18.3-44.2); Mean Corpuscular HGB Conc 32.6 g/dl (32-36); Mean Corpuscular Hemoglobin 27.8 pg (26-34); Mean Corpuscular Volume 85.3 fl (80-100); Monocytes Absolute Auto 1.2 K/mm3 (0.1-0.6); Monocytes Percent Auto 5.8 % (2.6-8.5); Neutrophils Absolute Auto 16.9 K/mm3 (1.3-6.7); Platelet Count Result 421 k/mm3 (150-375); Red Blood Count 3.88 M/mm3 (4.2-5.4); Red Cell Distribution Width 13.9 % (11.5-14.5); White Blood Count 21.4 K/mm3 (4.5-10.0)
--- NOTE | 2024-06-26 10:53 | PM.PNGS ---
Progress Note: A&P Assessment and Plan (1) Lower thoracic back pain: Code(s): M54.6 - Pain in thoracic spine Status: Acute Assessment and Plan: No tenderness but still has pain in the right lower thoracic back primarily. It does extend a little bit to the right flank, lower chest. Could very well be due to late 3rd trimester (2) Left-sided abdominal pain of unknown etiology: Code(s): R10.9 - Unspecified abdominal pain Status: Acute Assessment and Plan: No right or left-sided abdominal pain this morning. Abdomen nontender. No guarding. (3) Third trimester : Code(s): Z34.93 - Encounter for supervision of normal , unspecified, third trimester Status: Chronic Assessment and Plan: No longer having contractions. Plan White blood cell count has progressively decreased during this admission. Her abdominal exam is significantly improved. Her contractions have resolved and have not recurred through the night. She did have an MRI scan but it has not been read as yet. If MRI is negative for appendicitis, patient can be discharged from my opinion to follow-up with Dr. Lindsay. If still questionable regarding appendicitis, will treat with antibiotics and discuss further with Dr. Lindsay. Would avoid surgery if at all possible. Subjective Subjective Date/Time Seen: 06/26/24 10:54 Patient reports: feels better (Hungry this morning), still having pain (Right lower thoracic back and CVA pain persists, less than yesterday, no abdominal pain), tolerating a regular diet and afebrile Review of Systems Review of Systems: All systems reviewed & are unremarkable except as noted in HPI and below (HPI) Exam Const: General: cooperative, comfortable, alert, awake and tired appearing GI: Inspection: other (Gravid uterus, late 3rd trimester) GI Palp: Yes Soft to palpation and No Tenderness to palpation present (GI) Back/Spine/Pelvis: Back: No CVA tenderness, No warmth, No ecchymosis and No back tenderness Objective Data Vital Signs Vital Signs: Vital Signs - 24 hr 06/25/24 11:01 06/25/24 11:15 06/25/24 11:20 Temperature Pulse Rate 80 72 68 Respiratory Rate Blood Pressure 126/78 135/101 H 131/63 Blood Pressure [Left Arm] Pulse Oximetry Oxygen Delivery 06/25/24 11:31 06/25/24 11:46 06/25/24 12:01 Temperature Pulse Rate 60 61 72 Respiratory Rate Blood Pressure 142/72 H 137/114 H 130/69 Blood Pressure [Left Arm] Pulse Oximetry Oxygen Delivery 06/25/24 12:16 06/25/24 12:31 06/25/24 14:21 Temperature Pulse Rate 67 64 65 Respiratory Rate Blood Pressure 116/86 139/66 137/59 L Blood Pressure [Left Arm] Pulse Oximetry Oxygen Delivery 06/25/24 15:01 06/25/24 15:26 06/25/24 16:01 Temperature 36.6 C Pulse Rate 70 80 Respiratory Rate Blood Pressure 146/68 H 137/54 L Blood Pressure [Left Arm] Pulse Oximetry Oxygen Delivery 06/25/24 17:01 06/25/24 18:01 06/25/24 19:28 Temperature Pulse Rate 85 89 Respiratory Rate Blood Pressure 119/63 137/65 Blood Pressure [Left Arm] Pulse Oximetry 100 Oxygen Delivery 06/25/24 19:33 06/25/24 19:35 06/25/24 19:38 Temperature Pulse Rate 60 Respiratory Rate Blood Pressure 139/66 Blood Pressure [Left Arm] Pulse Oximetry 100 99 Oxygen Delivery 06/25/24 19:43 06/25/24 19:48 06/25/24 19:53 Temperature Pulse Rate Respiratory Rate Blood Pressure Blood Pressure [Left Arm] Pulse Oximetry 100 100 99 Oxygen Delivery 06/25/24 19:58 06/25/24 20:03 06/25/24 20:08 Temperature Pulse Rate Respiratory Rate Blood Pressure Blood Pressure [Left Arm] Pulse Oximetry 100 99 98 Oxygen Delivery 06/25/24 20:13 06/25/24 20:18 06/25/24 20:23 Temperature Pulse Rate Respiratory Rate Blood Pressure Blood Pressure [Left Arm] Pulse Oximetry 99 98 100
--- NOTE | 2024-06-26 12:23 | PC.NURSE ---
Dr. Lindsay updated with MRI results and wanting to be discharged and eat. Patient and Dr. Lindsay in agreement with plan to discharge.
--- NOTE | 2024-07-03 07:36 | PM.OBTRLD ---
OB - Triage/Final Diagnosis Visit Information Comments/Additional reasons for admission: I have assessed the risk for this patient, Anika Moser, and determined that she would benefit from observation care. Evaluation Laboratory results: Laboratory Tests 06/25/24 06/25/24 06/25/24 10:25 14:28 23:09 WBC 28.8 H 24.9 H RBC 4.35 4.02 L Hgb 11.9 L D 11.2 L Hct 37.7 34.0 L MCV 86.7 84.6 MCH 27.4 27.9 MCHC 31.6 L 32.9 RDW 14.1 14.0 Plt Count 407 H 389 H MPV 10.6 H 10.8 H Immature Gran % (Auto) Not Reportable Not Reportable Neut % (Auto) Not Reportable Not Reportable Lymph % (Auto) Not Reportable Not Reportable [place] % (Auto) Not Reportable Not Reportable Eos % (Auto) Not Reportable Not Reportable Baso % (Auto) Not Reportable Not Reportable Lymph # (Auto) Not Reportable Not Reportable [place] # (Auto) Not Reportable Not Reportable Eos # (Auto) Not Reportable Not Reportable Baso # (Auto) Not Reportable Not Reportable Abs Immat Gran (auto) Not Reportable Not Reportable Absolute Neuts (auto) Not Reportable Not Reportable Absolute Nucleated RBC Not Reportable Not Reportable Total Counted 100 Neutrophils % (Manual) 92 H 80 H Band Neutrophils % 2 2 Lymphocytes % (Manual) 6 L 15.0 L Monocytes % (Manual) 3 Nucleated RBC % Not Reportable Not Reportable Abs Neuts (Manual) 27.07 H 20.41 H Abs Lymphs (Manual) 1.72 3.73 Abs Monocytes (Manual) 0.74 Platelet Estimate Increased Increased Schistocytes None seen None seen Sodium 134 L Potassium 4.5 Chloride 101 Carbon Dioxide 21 L Anion Gap 12 BUN 5 L Creatinine 0.50 L Estim Creat Clear Calc 149 Estimated GFR > 60 Glucose 107 Calcium 8.8 Total Bilirubin 0.6 AST 24 ALT 18 Alkaline Phosphatase 285 H Total Protein 8.0 Albumin 4.2 Urine Color Yellow Urine Appearance Clear Urine pH 8.0 Ur Specific [place] 1.011 Urine Protein Negative Urine Glucose (UA) Negative Urine Ketones Negative Ur Blood (Man) Negative Urine Nitrate Negative Urine Bilirubin Negative Urine Urobilinogen 0.2 Ur Leukocyte Esterase Negative 08/23/24 08:26 WBC 21.4 H RBC 3.88 L Hgb 10.8 L Hct 33.1 L MCV 85.3 MCH 27.8 MCHC 32.6 RDW 13.9 Plt Count 421 H MPV 11.0 H Immature Gran % (Auto) 2.0 H Neut % (Auto) 79.0 H Lymph % (Auto) 12.9 L [place] % (Auto) 5.8 Eos % (Auto) 0.0 Baso % (Auto) 0.3 Lymph # (Auto) 2.76 [place] # (Auto) 1.2 H Eos # (Auto) 0.0 Baso # (Auto) 0.1 Abs Immat Gran (auto) 0.43 H Absolute Neuts (auto) 16.9 H Absolute Nucleated RBC 0.000 Total Counted Neutrophils % (Manual) Band Neutrophils % Lymphocytes % (Manual) Monocytes % (Manual) Nucleated RBC % 0.0 Abs Neuts (Manual) Abs Lymphs (Manual) Abs Monocytes (Manual) Platelet Estimate Schistocytes Sodium Potassium Chloride Carbon Dioxide Anion Gap BUN Creatinine Estim Creat Clear Calc Estimated GFR Glucose Calcium Total Bilirubin AST ALT Alkaline Phosphatase Total Protein Albumin Urine Color Urine Appearance Urine pH Ur Specific [place] Urine Protein Urine Glucose (UA) Urine Ketones Ur Blood (Man) Urine Nitrate Urine Bilirubin Urine Urobilinogen Ur Leukocyte Esterase Final Diagnosis (1) RUQ pain: Code(s): R10.11 - Right upper quadrant pain Status: Acute
== END 2024-06-26 12:45 | disposition home or self-care (01) ==
LOC: ANHLDR 10:29 → ANHOBPP 21:59
PROVIDERS: Advanced Practice Midwife; Surgery; Admitting Provider Obstetrics & Gynecology; Visit Provider Obstetrics & Gynecology
DX: O26.893 Other specified pregnancy related conditions, third trimester (principal); M54.6 Pain in thoracic spine; R10.9 Unspecified abdominal pain; Z3A.37 37 weeks gestation of pregnancy
CPT/HCPCS: 36415; 59025; 74181; 76705; 76775; 76815; 80053; 81003; 85025; 87086; 96361; 96365; 96375; 96376; A9270; G0378; G0379; J2543; J3010; J7120

== ENCOUNTER 2024-06-27 21:32 | Inpatient (IN) | payer OTHER, SELFPAY ==
[2024-06-27] VITALS (7 sets, daily range): BP systolic 132–146; BP diastolic 82–88; PULSE 72–92; BMI 37.9
--- NOTE | ~2024-06-27 | US_ITS ---
Limited Abdominal Sonogram: Real-time sonographic imaging of the right upper quadrant was performed. Clinical History: Abdominal pain Findings: The liver appears mildly echogenic with no evidence of mass lesion or bile duct dilatation . Main portal vein demonstrates normal direction of flow. The gallbladder is well distended, and demo nstrates layering gallbladder sludge. The common bile duct measures 4 mm. The visualized pancreas, a nba, and IVC are unremarkable. Impression: Probable diffuse fatty infiltration of the liver. Gallbladder sludge. Reviewed, dictated and finalized at location M. Impression: Probable diffuse fatty infiltration of the liver. Gallbladder sludge.
[2024-06-27] MEDS: HYDROcodone/acetaminophen (*CRX) 10-325 MG TABLET 1 TAB PO (23:40)
[2024-06-27 23:54] LABS: Basophils Absolute Auto 0.1 K/mm3 (0.0-0.1); Basophils Percent Auto 0.3 % (0.2-1.2); Eosinophils Absolute Auto 0.1 K/mm3 (0-0.3); Eosinophils Percent Auto 0.3 % (0-4.4); Hematocrit 33.5 % (37.0-47.0); Hemoglobin 10.9 g/dL (12.0-15.0); Immature Granulocyte Absolute 0.19 K/mm3 (0.00-0.031); Immature Granulocyte Percent A 0.9 % (0-0.5); Lymphocytes Absolute Auto 3.26 K/mm3 (0.9-3.2); Lymphocytes Percent Auto 14.8 % (18.3-44.2); Mean Corpuscular HGB Conc 32.5 g/dl (32-36); Mean Corpuscular Hemoglobin 27.7 pg (26-34); Mean Corpuscular Volume 85.2 fl (80-100); Mean Platelet Volume 10.6 fl (7.4-10.4); Monocytes Absolute Auto 1.7 K/mm3 (0.1-0.6); Monocytes Percent Auto 7.8 % (2.6-8.5); Neutrophils Absolute Auto 16.7 K/mm3 (1.3-6.7); Neutrophils Percent Auto 75.9 % (45.5-73.1); Platelet Count Result 365 k/mm3 (150-375); Red Blood Count 3.93 M/mm3 (4.2-5.4); Red Cell Distribution Width 14.3 % (11.5-14.5)
[2024-06-27 23:56] LABS: Add Urine Microscopic? YES; Appearance Urine Clear (Clear); Bilirubin Urine 1+ (Negative); Blood Urine Negative (Negative); Color Urine Dark Yellow (Yellow); Glucose Urine UA Negative (Negative); Ketones Urine Trace mg/dL (Negative); Leukocyte Esterase Ur Negative LEU/UL (Negative); Nitrate Urine Negative (Negative); Protein Urine Negative (Negative); Specific Grav Ur 1.008 (1.001-1.035); pH Urine 6.5 (5.0-9.0)
[2024-06-28] VITALS (202 sets, daily range): BP systolic 82–158; BP diastolic 56–132; PULSE 71–116; RESP 16–18; TEMP 36.1–37; O2SAT 96–100
--- NOTE | 2024-06-28 02:39 | OBADM ---
This patient, Anika Moser, admitted to the OB room OB Post 117 for observation. Patient/family oriented to hospital policies and general routines including ID bracelet, bed and alarms, visiting hours, pain management, procedures, bathroom and other care routines, personal items, smoking policy, room service/diet, and visiting hours. Patient/Family are encouraged to report perceived risks to care and to ask questions if they do not understand what they are told or what they should do.
[2024-06-28] MEDS: HYDROcodone/acetaminophen (*CRX) 10-325 MG TABLET 1 TAB PO (03:56)
--- NOTE | 2024-06-28 06:18 | PM.IMHP ---
H&P: HPI History of Present Illness Date/Time: 06/28/24 06:18 Chief Complaint: 23 y.o. at 38.2 weeks gestation, returns to hospital for severe abdominal pain. Pt rated her pain a 7-8 on admission. Pt was here 06/26/24 for similar pain. At that time pt was seen by general surgery and had an MRI, the decision was made to treat with medication and antibiotics, she was then sent home with norco5/325mg. pt denies fever, vomiting, urinary sxs. History of previous section for non-reassuring heart tones. Pt has a history of chronic hypertension. Currently resting, but pain returns at a 7-8 after norco 10/325mg tierney 4-5 hours. Pt WBC remains stable. Review of Systems Review of Systems: All systems reviewed & are unremarkable except as noted in HPI and below PMFSH Family History Family History Father Emphysema lung Mother Chronic obstructive pulmonary disease Social History Social History Smoking status: Never smoker Second hand tobacco smoke exposure: No Substance use: current Last use: 06/25 Spiritual care concerns: No Meds Home Medications and Allergies Allergies Allergy/AdvReac Type Severity Reaction Status Date / Time No Known Allergies Allergy Verified 10/28/21 21:11 Vital Signs Vital Signs - 24 hr 06/27/24 22:08 06/27/24 22:15 06/27/24 22:30 Pulse Rate 79 80 78 Blood Pressure 132/82 142/85 H 146/86 H 06/27/24 22:45 06/27/24 23:00 06/27/24 23:15 Pulse Rate 76 92 84 Blood Pressure 146/86 H 144/88 H 138/82 06/27/24 23:30 06/28/24 03:57 Pulse Rate 72 93 Blood Pressure 139/85 134/77 Exam Const: General: cooperative and healthy appearing Chest: Chest palpation & inspection: normal inspection of the chest Resp: Effort & Inspection: normal respiratory effort Cardio: Rate: regular rate Rhythm: regular rhythm GI: Other: soft/gravid Back/Spine/Pelvis: Back: no CVA tenderness Skin: General skin exam: normal color and no rashes or lesions noted Neuro: General: patient oriented x3 Extrem: General: normal to inspection Right lower extremity: normal to inspection Left lower extremity: normal to inspection Psych: Appearance: grossly normal H&P: Results Labs Labs: Short CBC 06/27/24 Range/Units 23:47 WBC 22.0 H (4.5-10.0) K/mm3 Hgb 10.9 L (12.0-15.0) g/dL Hct 33.5 L (37.0-47.0) % Plt Count 365 (150-375) k/mm3 Urine 06/27/24 Range/Units 23:37 Urine Color Dark yellow (Yellow) Urine Appearance Clear (Clear) Urine pH 6.5 (5.0-9.0) Ur Specific [place] 1.008 (1.001-1.035) Urine Protein Negative (Negative) mg/dL Urine Glucose (UA) Negative (Negative) mg/dL Assessment and Plan Assessment and plan (1) Third trimester : Code(s): Z34.93 - Encounter for supervision of normal , unspecified, third trimester Status: Chronic (2) Left-sided abdominal pain of unknown etiology: Code(s): R10.9 - Unspecified abdominal pain Status: Acute Plan left sided abdominal pain chronic hypertension history of section discussed with Dr. Patel and will proceed with plan to deliver. pt would like to TOLAC. Pt verbalizes understanding about risks of uterine rupture and risk of /maternal . consents are signed and we will proceed
--- NOTE | 2024-06-28 07:27 | PM.OBPNLAB ---
Pain Control Date/time seen: 06/28/24 07:27 Comments: heart rate category 1 Pelvic Exam Comments: / soft brandt bulb placed without difficulty
[2024-06-28 08:08] LABS: Alanine Aminotransferase 63 U/L (6-35); Alkaline Phosphatase 301 U/L (38-126); Anion Gap 11 mmol/L (4-12); Aspartate Amino Transferase 67 U/L (14-36); Blood Urea Nitrogen 3 mg/dL (7-17); Calcium 8.8 mg/dL (8.4-10.2); Carbon Dioxide 20 mmol/L (22-30); Chloride 102 mmol/L (98-107); Estimated CRCL calculation 149 ml/min; Estimated Glomerular Filt Rate > 60; Glucose 83 mg/dL (65-110); Potassium 3.7 mmol/L (3.4-5.0); Sodium 133 mmol/L (137-145); Uric Acid 3.8 mg/dL (2.5-7.5)
[2024-06-28] MEDS: LACTATED RINGERS 1,000 ML 125 ML IV CONT ×2 (08:15→11:09)
[2024-06-28] MEDS: OXYTOCIN 30 UNITS/NS 500 ML 30 UNITS/500 ML BAG IV CONT (08:15)
--- NOTE | 2024-06-28 08:15 | LDADM ---
This patient, Anika Moser, was admitted to Labor/Delivery/Recovery 102 on 06/27/24 at 21:32. Plans for labor, pain management and were discussed with patient. Patient/family oriented to hospital policies and general routines including ID bracelet, bed and alarms, visiting hours, pain management, procedures, bathroom and other care routines, personal items, smoking policy, room service/diet and guest tray routines, security routines, and visiting hours. Patient/Family are encouraged to report perceived risks to care and to ask questions if they do not understand what they are told or what they should do. See OBIX for further documentation.
[2024-06-28 09:06] LABS: HIV 1/2 Ab P24 Ag Result Negative (Negative)
[2024-06-28 10:41] LABS: Rapid Plasma Reagin Non-Reactive (NonReactive)
--- NOTE | 2024-06-28 13:10 | PM.OBPNLAB ---
Pain Control Date/time seen: 06/28/24 13:10 Comments: resting comfortably with epidural SVE /-2 AROM large amount of clear, odorless fluid, IUPC placed, anticipate vaginal delivery
[2024-06-28 15:38] LABS: Hematocrit 35.7 % (37.0-47.0); Hemoglobin 11.6 g/dL (12.0-15.0); Mean Corpuscular HGB Conc 32.5 g/dl (32-36); Mean Corpuscular Hemoglobin 27.6 pg (26-34); Mean Platelet Volume 10.4 fl (7.4-10.4); Platelet Count Result 354 k/mm3 (150-375); Red Cell Distribution Width 14.4 % (11.5-14.5); White Blood Count 17.8 K/mm3 (4.5-10.0)
[2024-06-28 15:51] LABS: Alanine Aminotransferase 92 U/L (6-35); Albumin Level 3.8 g/dL (3.5-5.1); Alkaline Phosphatase 295 U/L (38-126); Anion Gap 8 mmol/L (4-12); Aspartate Amino Transferase 96 U/L (14-36); Bilirubin,Total 2.5 mg/dL (0.2-1.3); Blood Urea Nitrogen 2 mg/dL (7-17); Calcium 8.9 mg/dL (8.4-10.2); Carbon Dioxide 24 mmol/L (22-30); Chloride 102 mmol/L (98-107); Estimated CRCL calculation 126 ml/min; Estimated Glomerular Filt Rate > 60; Glucose 72 mg/dL (65-110); Sodium 134 mmol/L (137-145)
[2024-06-28] MEDS: ACETAMINOPHEN 500 MG TABLET 1000 MG PO (16:18)
[2024-06-28] MEDS: MAGNESIUM SULF 4 GM/WATER100ML 4 GM/100 ML BAG IVPB (16:28)
[2024-06-28] MEDS: MAGNESIUM SULF 20GM/WATER500ML 500 ML 50 MG IV CONT (17:01)
[2024-06-28 17:52] LABS: Hematocrit 36.5 % (37.0-47.0); Hemoglobin 11.8 g/dL (12.0-15.0); Mean Corpuscular HGB Conc 32.3 g/dl (32-36); Mean Corpuscular Hemoglobin 27.6 pg (26-34); Mean Corpuscular Volume 85.3 fl (80-100); Mean Platelet Volume 10.7 fl (7.4-10.4); Platelet Count Result 365 k/mm3 (150-375); Red Blood Count 4.28 M/mm3 (4.2-5.4); Red Cell Distribution Width 14.5 % (11.5-14.5); White Blood Count 18.6 K/mm3 (4.5-10.0)
[2024-06-28 18:01] LABS: Alanine Aminotransferase 105 U/L (6-35); Albumin Level 3.7 g/dL (3.5-5.1); Alkaline Phosphatase 308 U/L (38-126); Anion Gap 10 mmol/L (4-12); Aspartate Amino Transferase 115 U/L (14-36); Bilirubin,Total 2.4 mg/dL (0.2-1.3); Blood Urea Nitrogen 3 mg/dL (7-17); Calcium 8.2 mg/dL (8.4-10.2); Carbon Dioxide 23 mmol/L (22-30); Chloride 100 mmol/L (98-107); Estimated CRCL calculation 126 ml/min; Estimated Glomerular Filt Rate > 60; Glucose 77 mg/dL (65-110); Potassium 3.6 mmol/L (3.4-5.0); Sodium 133 mmol/L (137-145)
[2024-06-28 20:02] LABS: Basophils Percent Auto 0.2 % (0.2-1.2); Eosinophils Absolute Auto 0.1 K/mm3 (0-0.3); Eosinophils Percent Auto 0.3 % (0-4.4); Hematocrit 36.3 % (37.0-47.0); Hemoglobin 11.8 g/dL (12.0-15.0); Immature Granulocyte Absolute 0.12 K/mm3 (0.00-0.031); Immature Granulocyte Percent A 0.6 % (0-0.5); Lymphocytes Absolute Auto 2.47 K/mm3 (0.9-3.2); Lymphocytes Percent Auto 12.8 % (18.3-44.2); Mean Corpuscular HGB Conc 32.5 g/dl (32-36); Mean Corpuscular Hemoglobin 27.6 pg (26-34); Mean Platelet Volume 10.7 fl (7.4-10.4); Neutrophils Absolute Auto 15.7 K/mm3 (1.3-6.7); Neutrophils Percent Auto 81.1 % (45.5-73.1); Platelet Count Result 366 k/mm3 (150-375); Red Blood Count 4.27 M/mm3 (4.2-5.4); Red Cell Distribution Width 14.4 % (11.5-14.5); White Blood Count 19.4 K/mm3 (4.5-10.0)
[2024-06-28 20:12] LABS: Alanine Aminotransferase 118 U/L (6-35); Albumin Level 3.6 g/dL (3.5-5.1); Alkaline Phosphatase 314 U/L (38-126); Anion Gap 11 mmol/L (4-12); Aspartate Amino Transferase 131 U/L (14-36); Bilirubin,Total 2.4 mg/dL (0.2-1.3); Blood Urea Nitrogen 3 mg/dL (7-17); Calcium 7.8 mg/dL (8.4-10.2); Carbon Dioxide 22 mmol/L (22-30); Chloride 100 mmol/L (98-107); Estimated CRCL calculation 126 ml/min; Estimated Glomerular Filt Rate > 60; Glucose 88 mg/dL (65-110); Potassium 3.4 mmol/L (3.4-5.0); Sodium 133 mmol/L (137-145)
--- NOTE | 2024-06-28 21:03 | PM.OBPRVD ---
OB - Vaginal Delivery Note Procedure Delivery date: 06/28/24 Events: Chronic Hypertension, Preeclampsia w severe features and Previous Delivery Induction method: AROM, Per Pitocin Protocol and Other (brandt bulb) Delivery monitor: External FHT and Internal Uterine Route of delivery: Episiotomy description: Right Mediolateral Delivery repair: vicryl Specimen: Yes Quantitative Blood Loss (ml): 150 Anesthesia type: Epidural Disposition: Floor Baby Date of : 06/28/24 Time of : 20:49 Gestational Age by Date: 38 Infant gender: Female presentation: vertex position: Left Occiput Anterior Placenta delivery description: Spontaneous Cord Vessel Description: 3 Vessels and Clamped/Cut score one minute: 8 score five minutes: 9 Narrative: head delivered LUCIAN, unable to deliver anterior shoulder, teresa, unable to rotate manually, suprapubic pressure, episiotomy and then easily delivered posterior arm. baby to warmer, moving all limbs and back to mom for skin to skin. total one minute
[2024-06-28] MEDS: OXYTOCIN 30 UNITS/NS 500 ML 30 UNITS/500 ML BAG 125 UNITS IV CONT (21:20)
[2024-06-28] MEDS: BENZOCAINE 20% AER SPR (*SP) 56 GM CAN 1 SPRAY TOPICAL (21:32)
[2024-06-28] MEDS: WITCH HAZEL 40 PADS 1 PAD TOPICAL (21:32)
[2024-06-28] MEDS: IBUPROFEN 600 MG TABLET PO (21:33)
[2024-06-28] MEDS: ACETAMINOPHEN 325 MG TABLET 650 MG PO (21:33)
[2024-06-28] MEDS: HYDROcodone/acetaminophen (*CRX) 5-325 MG TABLET 1 TAB PO (23:30)
[2024-06-29] VITALS (56 sets, daily range): BP systolic 112–140; BP diastolic 68–81; PULSE 79–115; RESP 16–18; TEMP 36.6–37.1; O2SAT 97–100
[2024-06-29 01:14] LABS: Alanine Aminotransferase 162 U/L (6-35); Albumin Level 3.3 g/dL (3.5-5.1); Alkaline Phosphatase 316 U/L (38-126); Anion Gap 8 mmol/L (4-12); Aspartate Amino Transferase 184 U/L (14-36); Bilirubin,Total 2.7 mg/dL (0.2-1.3); Blood Urea Nitrogen 3 mg/dL (7-17); Calcium 7.1 mg/dL (8.4-10.2); Carbon Dioxide 21 mmol/L (22-30); Chloride 103 mmol/L (98-107); Estimated CRCL calculation 181 ml/min; Estimated Glomerular Filt Rate > 60; Glucose 136 mg/dL (65-110); Sodium 132 mmol/L (137-145)
[2024-06-29] MEDS: MAGNESIUM SULF 20GM/WATER500ML 500 ML 50 MG IV CONT ×2 (02:44→12:08)
[2024-06-29] MEDS: LACTATED RINGERS 1,000 ML 75 ML IV CONT ×2 (02:45→16:01)
[2024-06-29 05:54] LABS: Basophils Absolute Auto 0.1 K/mm3 (0.0-0.1); Basophils Percent Auto 0.2 % (0.2-1.2); Eosinophils Absolute Auto 0.1 K/mm3 (0-0.3); Eosinophils Percent Auto 0.5 % (0-4.4); Hematocrit 33.3 % (37.0-47.0); Hematocrit 34.3 % (37.0-47.0); Hemoglobin 10.9 g/dL (12.0-15.0); Hemoglobin 11.1 g/dL (12.0-15.0); Immature Granulocyte Absolute 0.12 K/mm3 (0.00-0.031); Immature Granulocyte Percent A 0.6 % (0-0.5); Lymphocytes Absolute Auto 2.91 K/mm3 (0.9-3.2); Lymphocytes Percent Auto 13.8 % (18.3-44.2); Mean Corpuscular HGB Conc 31.8 g/dl (32-36); Mean Corpuscular Volume 85.1 fl (80-100); Mean Platelet Volume 10.7 fl (7.4-10.4); Monocytes Absolute Auto 1.1 K/mm3 (0.1-0.6); Neutrophils Absolute Auto 16.9 K/mm3 (1.3-6.7); Neutrophils Percent Auto 79.9 % (45.5-73.1); Platelet Count Result 360 k/mm3 (150-375); Red Blood Count 4.03 M/mm3 (4.2-5.4); Red Cell Distribution Width 14.2 % (11.5-14.5); White Blood Count 21.1 K/mm3 (4.5-10.0)
--- NOTE | 2024-06-29 08:20 | PC.NURSE ---
Dr. Lindsay here for assessment- pt may get up to the bathroom unless dizzy and lightheaded then use bedside commode. CBC and CMP to be drawn at noon today, call with results
[2024-06-29] MEDS: ACETAMINOPHEN 325 MG TABLET 650 MG PO ×2 (08:29→16:01)
[2024-06-29] MEDS: DOCUSATE SODIUM 100 MG CAPSULE PO (08:29)
--- NOTE | 2024-06-29 11:19 | PCCCNOTE ---
Recvd referral due to pt. scored high on OB Substance Abuse Screening. Pt. self admits to using THC recreationally during and denies need for ETOH/Substance resources. MANDY Harley has been at bedside. Pt. reports this is her second baby, and that she, FOB, , and 2.5 year old daughter will all be living together in [place]. Pt. reports her mother, father, and siblings are supportive. Pt. reports having all necessary baby supplies and already established with [employer]. Pt. reports in process of getting WIC services. Pt. denies prior DCFS involvement. resources provided. RN Nicole aware of visit.
[2024-06-29 12:25] LABS: Basophils Absolute Auto 0.1 K/mm3 (0.0-0.1); Basophils Percent Auto 0.3 % (0.2-1.2); Eosinophils Absolute Auto 0.1 K/mm3 (0-0.3); Eosinophils Percent Auto 0.5 % (0-4.4); Hematocrit 32.5 % (37.0-47.0); Hemoglobin 10.4 g/dL (12.0-15.0); Immature Granulocyte Absolute 0.12 K/mm3 (0.00-0.031); Immature Granulocyte Percent A 0.6 % (0-0.5); Immature Platelet Fraction Pct 8.5 % (0.9-11.2); Lymphocytes Absolute Auto 2.56 K/mm3 (0.9-3.2); Lymphocytes Percent Auto 13.4 % (18.3-44.2); Mean Corpuscular Volume 84.4 fl (80-100); Monocytes Absolute Auto 0.8 K/mm3 (0.1-0.6); Monocytes Percent Auto 4.4 % (2.6-8.5); Neutrophils Absolute Auto 15.5 K/mm3 (1.3-6.7); Neutrophils Percent Auto 80.8 % (45.5-73.1); Platelet Count Result 365 k/mm3 (150-375); Red Blood Count 3.85 M/mm3 (4.2-5.4); Red Cell Distribution Width 14.3 % (11.5-14.5); White Blood Count 19.2 K/mm3 (4.5-10.0)
[2024-06-29 12:33] LABS: Alanine Aminotransferase 158 U/L (6-35); Albumin Level 3.2 g/dL (3.5-5.1); Alkaline Phosphatase 255 U/L (38-126); Anion Gap 10 mmol/L (4-12); Aspartate Amino Transferase 156 U/L (14-36); Bilirubin,Total 1.3 mg/dL (0.2-1.3); Calcium 6.5 mg/dL (8.4-10.2); Carbon Dioxide 23 mmol/L (22-30); Chloride 103 mmol/L (98-107); Estimated CRCL calculation 149 ml/min; Estimated Glomerular Filt Rate > 60; Glucose 101 mg/dL (65-110); Potassium 3.4 mmol/L (3.4-5.0); Sodium 136 mmol/L (137-145)
--- NOTE | 2024-06-29 12:40 | WPDANLDPN2 ---
Anes-Prog Note L&D Date/Time: 06/29/24 12:40 Comfortable throughout: labor and delivery Neuraxial method: epidural Epidural/Spinal procedure site: clean & non-tender Neuro status: Neuro function grossly intact. Cardiovascular status: normal Respiratory status: normal Airway patency: baseline Mental status: baseline Post-Op hydration status: normal Vital Signs: Last Vital Signs Temp 36.9 C 06/29/24 11:04 Pulse 93 06/29/24 11:04 Resp 18 06/29/24 11:04 BP 127/79 06/29/24 11:04 Pulse Ox 99 06/29/24 11:04 O2 Del Method Room Air 06/29/24 11:04 Pain score (VAS): 0/10 I/O: Intake & Output 06/28/24 06/29/24 06/29/24 23:59 07:59 15:59 Intake Total 100 1350 920 Output Total 1970 650 800 Balance -1870 700 120 Post-procedural complaints: none Patient feedback: Patient satisfied with anesthetic care.
[2024-06-29 12:52] LABS: Blood Urea Nitrogen < 2 mg/dL (7-17)
--- NOTE | 2024-06-29 13:32 | PC.NURSE ---
Dr. Lindsay notified of lab results, orders received to repeat labs in am. CBC and CMP ordered for 06/30 am
[2024-06-29] MEDS: IBUPROFEN 600 MG TABLET PO ×2 (13:36→20:44)
[2024-06-29] MEDS: HYDROcodone/acetaminophen (*CRX) 5-325 MG TABLET 1 TAB PO (17:35)
[2024-06-30] VITALS (7 sets, daily range): BP systolic 122–147; BP diastolic 68–93; PULSE 60–97; RESP 16–18; TEMP 36.1–36.8; O2SAT 96–100
[2024-06-30] MEDS: HYDROcodone/acetaminophen (*CRX) 5-325 MG TABLET 1 TAB PO ×2 (04:02→16:20)
[2024-06-30 05:31] LABS: Basophils Absolute Auto 0.1 K/mm3 (0.0-0.1); Basophils Percent Auto 0.3 % (0.2-1.2); Eosinophils Absolute Auto 0.1 K/mm3 (0-0.3); Eosinophils Percent Auto 0.9 % (0-4.4); Hematocrit 31.2 % (37.0-47.0); Immature Granulocyte Absolute 0.09 K/mm3 (0.00-0.031); Immature Granulocyte Percent A 0.6 % (0-0.5); Lymphocytes Absolute Auto 2.99 K/mm3 (0.9-3.2); Lymphocytes Percent Auto 18.4 % (18.3-44.2); Mean Corpuscular HGB Conc 32.1 g/dl (32-36); Mean Corpuscular Hemoglobin 27.2 pg (26-34); Mean Corpuscular Volume 84.8 fl (80-100); Mean Platelet Volume 10.5 fl (7.4-10.4); Monocytes Absolute Auto 0.8 K/mm3 (0.1-0.6); Monocytes Percent Auto 4.9 % (2.6-8.5); Neutrophils Absolute Auto 12.2 K/mm3 (1.3-6.7); Neutrophils Percent Auto 74.9 % (45.5-73.1); Platelet Count Result 372 k/mm3 (150-375); Red Blood Count 3.68 M/mm3 (4.2-5.4); Red Cell Distribution Width 14.5 % (11.5-14.5); White Blood Count 16.2 K/mm3 (4.5-10.0)
[2024-06-30 05:41] LABS: Alanine Aminotransferase 184 U/L (6-35); Albumin Level 3.2 g/dL (3.5-5.1); Alkaline Phosphatase 231 U/L (38-126); Anion Gap 8 mmol/L (4-12); Aspartate Amino Transferase 142 U/L (14-36); Bilirubin,Total 0.7 mg/dL (0.2-1.3); Blood Urea Nitrogen 5 mg/dL (7-17); Calcium 7.7 mg/dL (8.4-10.2); Carbon Dioxide 25 mmol/L (22-30); Chloride 103 mmol/L (98-107); Estimated CRCL calculation 149 ml/min; Estimated Glomerular Filt Rate > 60; Glucose 81 mg/dL (65-110); Potassium 3.6 mmol/L (3.4-5.0); Sodium 136 mmol/L (137-145)
--- NOTE | 2024-06-30 08:32 | PM.OBPNVD ---
OB - PN: Subj Subjective Date/time seen: 06/30/24 08:32 Interval history: PPD#2 RUQ pain still present, 5 this morning Denies nausea or vomiting Pain otherwise well controlled S/p MgSO4 x24 hours Denies headaches, vision changes, chest pain, dyspnea OB - PN: Obj Data Labs 06/30/24 05:06 06/30/24 05:06 Labs: Laboratory Results - last 24 hr 06/29/24 06/30/24 12:14 05:06 WBC 19.2 H 16.2 H RBC 3.85 L 3.68 L Hgb 10.4 L 10.0 L Hct 32.5 L 31.2 L MCV 84.4 84.8 MCH 27.0 27.2 MCHC 32.0 32.1 RDW 14.3 14.5 Plt Count 365 372 MPV 11.0 H 10.5 H Immature Gran % (Auto) 0.6 H 0.6 H Neut % (Auto) 80.8 H 74.9 H Lymph % (Auto) 13.4 L 18.4 [place] % (Auto) 4.4 4.9 Eos % (Auto) 0.5 0.9 Baso % (Auto) 0.3 0.3 Lymph # (Auto) 2.56 2.99 [place] # (Auto) 0.8 H 0.8 H Eos # (Auto) 0.1 0.1 Baso # (Auto) 0.1 0.1 Abs Immat Gran (auto) 0.12 H 0.09 H Absolute Neuts (auto) 15.5 H 12.2 H Absolute Nucleated RBC 0.000 0.000 Nucleated RBC % 0.0 0.0 % Immature Plt Fraction 8.5 Sodium 136 L 136 L Potassium 3.4 3.6 Chloride 103 103 Carbon Dioxide 23 25 Anion Gap 10 8 BUN < 2 L 5 L Creatinine 0.50 L 0.50 L Estim Creat Clear Calc 149 149 Estimated GFR > 60 > 60 Glucose 101 81 Calcium 6.5 L 7.7 L Total Bilirubin 1.3 0.7 AST 156 H 142 H ALT 158 H 184 H Alkaline Phosphatase 255 H 231 H Total Protein 6.0 L 6.0 L Albumin 3.2 L 3.2 L OB - PN A/P Assessment and Plan (1) (spontaneous vaginal delivery): Code(s): O80 - Encounter for full-term uncomplicated delivery Status: Acute (2) Pre-eclampsia superimposed on chronic hypertension: Code(s): O11.9 - Pre-existing hypertension with pre-eclampsia, unspecified trimester Status: Acute Assessment and Plan: - VSS, normotensive, afebrile - exam significant for persistent RUQ pain - LFTs stable - other labs wnl - s/p MgSO4 x24 hours - hold tylenol, continue norco and ibuprofen - repeat labs in AM - if RUQ pain or LFTs not improving, consider reconsultation to general surgery to r/o other liver etiology Plan day: 2 Plan: routine care Time Spent With Patient Time: Total time spent is greater than 50% in coordination of care (as documented) at patient's floor/unit and/or counseling patient: Review of Systems Review of Systems: All systems reviewed & are unremarkable except as noted in HPI and below Exam Const: General: comfortable and no acute distress Orientation/consciousness: patient oriented x3 Resp: Effort & Inspection: normal respiratory effort GI: GI Palp: Yes Soft to palpation and Yes Tenderness to palpation present (GI) (RUQ)
[2024-06-30] MEDS: DOCUSATE SODIUM 100 MG CAPSULE PO (10:01)
[2024-06-30] MEDS: IBUPROFEN 600 MG TABLET PO ×2 (10:01→18:58)
[2024-07-01] MEDS: HYDROcodone/acetaminophen (*CRX) 5-325 MG TABLET 1 TAB PO (02:16)
[2024-07-01 05:09] VITALS: BP 123/87; PULSE 70
[2024-07-01 05:27] LABS: Basophils Absolute Auto 0.1 K/mm3 (0.0-0.1); Basophils Percent Auto 0.6 % (0.2-1.2); Eosinophils Absolute Auto 0.3 K/mm3 (0-0.3); Eosinophils Percent Auto 2.1 % (0-4.4); Hematocrit 32.5 % (37.0-47.0); Hemoglobin 10.4 g/dL (12.0-15.0); Immature Granulocyte Absolute 0.08 K/mm3 (0.00-0.031); Immature Granulocyte Percent A 0.6 % (0-0.5); Lymphocytes Absolute Auto 3.46 K/mm3 (0.9-3.2); Lymphocytes Percent Auto 26.5 % (18.3-44.2); Mean Corpuscular Hemoglobin 27.4 pg (26-34); Mean Corpuscular Volume 85.8 fl (80-100); Mean Platelet Volume 10.1 fl (7.4-10.4); Monocytes Absolute Auto 0.7 K/mm3 (0.1-0.6); Monocytes Percent Auto 5.3 % (2.6-8.5); Neutrophils Absolute Auto 8.5 K/mm3 (1.3-6.7); Neutrophils Percent Auto 64.9 % (45.5-73.1); Platelet Count Result 384 k/mm3 (150-375); Red Blood Count 3.79 M/mm3 (4.2-5.4); Red Cell Distribution Width 14.6 % (11.5-14.5); White Blood Count 13.1 K/mm3 (4.5-10.0)
[2024-07-01 05:37] LABS: Alanine Aminotransferase 181 U/L (6-35); Albumin Level 3.2 g/dL (3.5-5.1); Alkaline Phosphatase 188 U/L (38-126); Anion Gap 8 mmol/L (4-12); Aspartate Amino Transferase 105 U/L (14-36); Bilirubin,Total 0.5 mg/dL (0.2-1.3); Blood Urea Nitrogen 7 mg/dL (7-17); Calcium 8.3 mg/dL (8.4-10.2); Carbon Dioxide 25 mmol/L (22-30); Chloride 103 mmol/L (98-107); Estimated CRCL calculation 149 ml/min; Estimated Glomerular Filt Rate > 60; Glucose 72 mg/dL (65-110); Potassium 3.9 mmol/L (3.4-5.0); Sodium 136 mmol/L (137-145)
[2024-07-01] MEDS: IBUPROFEN 600 MG TABLET PO (06:48)
[2024-07-01 08:16] VITALS: BP 128/84; PULSE 65; RESP 12; TEMP 36.3; O2SAT 100
--- NOTE | 2024-07-01 08:36 | P.PNOB_ITS ---
OB - PN: Subj Subjective Date/time seen: 07/01/24 08:36 Interval history: PPD#3 RUQ pain still present, but improved Denies nausea or vomiting Pain otherwise well controlled S/p MgSO4 x24 hours Denies headaches, vision changes, chest pain, dyspnea Will recheck RUQ US today but otherwise ready for discharge OB - PN: Obj Data Labs 07/01/24 05:18 07/01/24 05:18 Labs: Laboratory Results - last 24 hr 07/01/24 05:18 WBC 13.1 H RBC 3.79 L Hgb 10.4 L Hct 32.5 L MCV 85.8 MCH 27.4 MCHC 32.0 RDW 14.6 H Plt Count 384 H MPV 10.1 Immature Gran % (Auto) 0.6 H Neut % (Auto) 64.9 Lymph % (Auto) 26.5 [place] % (Auto) 5.3 Eos % (Auto) 2.1 Baso % (Auto) 0.6 Lymph # (Auto) 3.46 H [place] # (Auto) 0.7 H Eos # (Auto) 0.3 Baso # (Auto) 0.1 Abs Immat Gran (auto) 0.08 H Absolute Neuts (auto) 8.5 H Absolute Nucleated RBC 0.000 Nucleated RBC % 0.0 Sodium 136 L Potassium 3.9 Chloride 103 Carbon Dioxide 25 Anion Gap 8 BUN 7 Creatinine 0.50 L Estim Creat Clear Calc 149 Estimated GFR > 60 Glucose 72 Calcium 8.3 L Total Bilirubin 0.5 AST 105 H ALT 181 H Alkaline Phosphatase 188 H Total Protein 6.0 L Albumin 3.2 L Imaging Radiologist's impression: Impressions Abdomen Ultrasound 07/01/24 07:48 Impression: Probable diffuse fatty infiltration of the liver. Gallbladder sludge. OB - PN A/P Assessment and Plan (1) Pre-eclampsia superimposed on chronic hypertension: Code(s): O11.9 - Pre-existing hypertension with pre-eclampsia, unspecified trimester Status: Acute Assessment and Plan: - RUQ pain improving - VSS, afebrile - LFTs slowly improving,other labs normal - RUQ US today demonstrates diffuse fatty liver, otherwise normal - stable for d/c today - RTC 1 week for BP/lab check (2) (spontaneous vaginal delivery): Code(s): O80 - Encounter for full-term uncomplicated delivery Status: Acute Plan day: 3 Plan: routine care and discharge home Time Spent With Patient Time: Total time spent is greater than 50% in coordination of care (as documented) at patient's floor/unit and/or counseling patient: Review of Systems Review of Systems: All systems reviewed & are unremarkable except as noted in HPI and below Exam Const: General: comfortable and no acute distress Resp: Effort & Inspection: normal respiratory effort
--- NOTE | 2024-07-01 08:42 | P.DS_ITS ---
DS: Admitting Diagnosis Discharge Date 07/01/24 Admitting Diagnosis preeclampsia with severe features DS: Discharge Diagnosis Discharge Diagnosis (1) Pre-eclampsia superimposed on chronic hypertension: Code(s): O11.9 - Pre-existing hypertension with pre-eclampsia, unspecified trimester Status: Acute (2) (vaginal after ): Code(s): O34.219 - Maternal care for unspecified type scar from previous delivery Status: Acute OB - DS: Summary OB Procedures : PIH Mgmt OB Procedures Intrapartum: OB Procedures: : None Peripartum Data Episiotomy description: Right Mediolateral Time Spent with Patient Time attestation: Total time spent providing and/or coordinating discharge services: DS: Data Data Completed and Pending Pending studies at discharge: Pending at discharge 06/28/24 21:27 Surgical [PTH] Routine Labs on day of discharge: Labs from last 24 hours 07/01/24 05:18 WBC 13.1 H RBC 3.79 L Hgb 10.4 L Hct 32.5 L MCV 85.8 MCH 27.4 MCHC 32.0 RDW 14.6 H Plt Count 384 H MPV 10.1 Immature Gran % (Auto) 0.6 H Neut % (Auto) 64.9 Lymph % (Auto) 26.5 [place] % (Auto) 5.3 Eos % (Auto) 2.1 Baso % (Auto) 0.6 Lymph # (Auto) 3.46 H [place] # (Auto) 0.7 H Eos # (Auto) 0.3 Baso # (Auto) 0.1 Abs Immat Gran (auto) 0.08 H Absolute Neuts (auto) 8.5 H Absolute Nucleated RBC 0.000 Nucleated RBC % 0.0 Sodium 136 L Potassium 3.9 Chloride 103 Carbon Dioxide 25 Anion Gap 8 BUN 7 Creatinine 0.50 L Estim Creat Clear Calc 149 Estimated GFR > 60 Glucose 72 Calcium 8.3 L Total Bilirubin 0.5 AST 105 H ALT 181 H Alkaline Phosphatase 188 H Total Protein 6.0 L Albumin 3.2 L Discharge Plan Discharge Attending physician on discharge: Alber Lindsay Consulting providers: Noa Kerr Discharging Clinician: Alber Lindsay Patient Disposition: Home, Self-Care Activity: may shower and pelvic rest Diet: as tolerated Patient Instructions: Antibiotic Form Stand Alone Forms: General Discharge Information Follow-up/Referrals: Alber Lindsay MD [Physician] - 1 Week Discharge Medications: New docusate sodium 100 mg Capsule 100 mg PO BID PRN (Reason: Constipation) Qty: 60 0RF ibuprofen 600 mg Tablet 600 mg PO Q6H PRN (Reason: Cramping) Qty: 30 0RF Discontinued hydrocodone-acetaminophen [[place]] 10-325 mg Tablet 1 tablet PO Q6H PRN (Reason: Pain (Scale Score 7-10)) Date of admission: 06/27/24 21:32 Primary Care Provider: PHYSICIAN,DOCTOR CHIROPRACTIC Admitting Provider: Alber Lindsay Attending physician on admission: Alber Lindsay Condition: Stable
--- NOTE | 2024-07-01 09:02 | PC.NURSE ---
On 07/01/24, the student, Alisson Calero, provided care and completed [facility] documentation on this patient. I have reviewed the student's documentation and agree with the findings.
[2024-07-02 15:59] VITALS: BP 125/71; PULSE 90; RESP 18; TEMP 37.3; O2SAT 98
== END 2024-07-01 10:10 | disposition home or self-care (01) | DRG 560 ==
LOC: ANHLDR 06-28 06:55 → ANHOBPP 06-28 06:55 → ANHOB2 06-29 06:53
PROVIDERS: Advanced Practice Midwife; Admitting Provider Obstetrics & Gynecology; Visit Provider Obstetrics & Gynecology
DX: O34.219 Maternal care for unspecified type scar from previous cesarean delivery (principal); O10.92 Unspecified pre-existing hypertension complicating childbirth; O14.04 Mild to moderate pre-eclampsia, complicating childbirth; R74.01 Elevation of levels of liver transaminase levels; Z3A.38 38 weeks gestation of pregnancy; Z37.0 Single live birth
CPT/HCPCS: 36415; 76705; 80053; 81001; 84550; 85014; 85018; 85025; 85027; 85055; 86592; 86703; 86850; 86900; 86901; 88307; A9270; G0432; J2590; J2795; J3475; J7120